=== PATIENT | female | born 1990 | race Hispanic/Latino ===

== ENCOUNTER 2021-08-04 06:18 | Emergency (ER) | payer OTHER | END 2021-08-04 07:46 | disposition home or self-care (01) | LOC: CSHERS 06:18 | DX: T25.221A Burn of second degree of right foot, initial encounter (principal); T25.222A Burn of second degree of left foot, initial encounter; Z87.891 Personal history of nicotine dependence | CPT/HCPCS: 99281 ==

== ENCOUNTER 2021-10-07 01:23 | Emergency (ER) | payer BC, OTHER ==
[2021-10-07] MEDS ORDERED: Amoxicillin/Potassium Clav 875 MG TAB ONE (02:15)
[2021-10-07] MEDS ORDERED: Ibuprofen 200 MG TAB ONE (02:16)
== END 2021-10-07 02:20 | disposition home or self-care (01) ==
LOC: CSHERS 01:23
DX: H66.011 Acute suppurative otitis media with spontaneous rupture of ear drum, right ear (principal); Z87.891 Personal history of nicotine dependence
CPT/HCPCS: 99282

== ENCOUNTER 2022-05-30 18:54 | Emergency (ER) | payer BC, OTHER ==
[2022-05-30] MEDS ORDERED: Ibuprofen 800 MG TAB ONE (19:35)
== END 2022-05-30 21:33 | disposition home or self-care (01) ==
LOC: CSHERS 18:54
DX: J11.1 Influenza due to unidentified influenza virus with other respiratory manifestations (principal); Z87.891 Personal history of nicotine dependence
CPT/HCPCS: 87804; 99284

== ENCOUNTER 2022-11-25 03:12 | Emergency (ER) | payer OTHER ==
[2022-11-25] MEDS ORDERED: Ondansetron ODT 4 MG TAB ONE (03:35)
[2022-11-25] MEDS ORDERED: Ketorolac Tromethamine 30 MG/ML VIAL ONE (03:56)
[2022-11-25] MEDS ORDERED: Promethazine HCl 25 MG in Sodium Chloride 0.9% 50 ML IVPB SCH (04:00)
== END 2022-11-25 04:43 | disposition home or self-care (01) ==
LOC: CSHERS 03:12
DX: R11.2 Nausea with vomiting, unspecified (principal); R19.7 Diarrhea, unspecified; Z87.891 Personal history of nicotine dependence
CPT/HCPCS: 96365; 96375; J1885; J2550; Q0162